=== PATIENT | female | born 1965 | race Caucasian/White ===

== ENCOUNTER 2018-08-12 21:35 | Emergency (ER) | payer BC, SELFPAY ==
[2018-08-12] MEDS ORDERED: MEPERIDINE HCL 25 MG/0.5 ML ONE (22:47)
[2018-08-12] MEDS ORDERED: ONDANSETRON 4 MG/2 ML VIAL ONE (22:47)
[2018-08-12] MEDS ORDERED: NA CHLORIDE 0.9% 1,000 ML ONE ×2 (22:48→23:48)
[2018-08-12 23:04] LABS: Absolute Lymphocytes (CBC) 0.7 K/uL (0.7-4.9); Absolute Monocytes 0.4 K/uL (0.1-1.3); Absolute Neutrophil 6.9 K/uL (1.8-8.0); Basophils % 0.2 % (0-1.3); Eosinophils % 1.5 % (0-4.4); Hematocrit 45.6 % (36.0-45.0); Lymphocytes % 8.5 % (15.3-44.8); MPV 9.4 fL (7.6-11.3); Monocytes % 4.8 % (3.3-12.3); RBC Red Blood Cell Count 5.32 M/uL (3.86-4.86)
[2018-08-12 23:21] LABS: Albumin 4.1 g/dL (3.4-5.0); Bilirubin Direct 0.2 mg/dL (0-0.2); Bilirubin Total 0.9 mg/dL (0.2-1.0); Potassium 3.7 mmol/L (3.5-5.1); Protein, Total 7.7 g/dL (6.4-8.2)
--- NOTE | 2018-08-13 00:58 | EDPHYS ---
Physician Documentation [facility] Name: Sirena Spears Age: 53 yrs Sex: Female : 1965 Arrival Date: 08/12/2018 Time: 21:38 Bed 23 Private MD: ED Physician Yasir Iqbal HPI: 08/12 22:29 This 53 yrs old Female presents to ER via Ambulatory with complaints of Back pkl Pain, Abdominal Pain, Vomiting/Diarrhea. 22:29 The patient complains of pain in the right flank. The pain radiates to the right lower pkl quadrant. Onset: The symptoms/episode began/occurred yesterday. Associated signs and symptoms: Pertinent positives: diarrhea, vomiting. 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 LMP N/A - Hysterectomy aa1 Historical: - Allergies: 21:46 Morphine; aa1 - Home Meds: 21:46 aspirin 325 mg Oral tab 1 tab once daily [Active]; Cymbalta 60 mg oral cpDR 1 cap once aa1 daily [Active]; Levemir 100 unit/mL subcutaneous soln 20 unit daily [Active]; losartan 25 mg oral tab 1 tab once daily [Active]; omega-3 fatty acids 1,000 mg oral cap 2 cap twice a day [Active]; propranolol 10 mg Oral tab daily [Active]; Victoza 3-Long 0.6 mg/0.1 mL (18 mg/3 mL) subcutaneous pnij 1.8 mL once daily [Active]; cholecalciferol (vitamin D3) 5,000 unit oral tab daily [Active]; Crestor 10 mg oral tab 1 tab once daily [Active]; Zyrtec 10 mg Oral tab 1 tab once daily [Active]; - PMHx: 21:46 Diabetes - IDDM; High Cholesterol; Hypertension; Migraines; aa1 - PSHx: 21:46 Tonsillectomy; Partial Hysterectomy; Cholecystectomy; aa1 - Immunization history:: Flu vaccine is up to date. - Social history:: Smoking status: Patient/guardian denies using tobacco. - Ebola Screening: : No symptoms or risks identified at this time. ROS: 22:29 Eyes: Negative for injury, pain, redness, and discharge, ENT: Negative for injury, pkl pain, and discharge, Neck: Negative for injury, pain, and swelling, Cardiovascular: Negative for chest pain, palpitations, and edema, Respiratory: Negative for shortness of breath, cough, wheezing, and pleuritic chest pain. 22:29 Abdomen/GI: Positive for abdominal pain, nausea, vomiting, and diarrhea, of the right lower quadrant. 22:29 Back: Positive for flank pain, on the right. 22:29 : Negative for urinary symptoms. 22:29 MS/extremity: Negative for acute changes. 22:29 Skin: Negative for rash. 22:29 Neuro: Negative for altered mental status. Exam: 22:29 Head/Face: Normocephalic, atraumatic. Eyes: Pupils equal round and reactive to light, pkl extra-ocular motions intact. Lids and lashes normal. Conjunctiva and sclera are non-icteric and not injected. Cornea within normal limits. Periorbital areas with no swelling, redness, or edema. ENT: Nares patent. No nasal discharge, no septal abnormalities noted. Tympanic membranes are normal and external auditory canals are clear. Oropharynx with no redness, swelling, or masses, exudates, or evidence of obstruction, uvula midline. Mucous membranes moist. Neck: Trachea midline, no thyromegaly or masses palpated, and no cervical lymphadenopathy. Supple, full range of motion without nuchal rigidity, or vertebral point tenderness. No Meningismus. Chest/axilla: Normal chest wall appearance and motion. Nontender with no deformity. No lesions are appreciated. Cardiovascular: Regular rate and rhythm with a normal S1 and S2. No gallops, murmurs, or rubs. Normal PMI, no JVD. No pulse deficits. Respiratory: Lungs have equal breath sounds bilaterally, clear to auscultation and percussion. No rales, rhonchi or wheezes noted. No increased work of breathing, no retractions or nasal flaring. Abdomen/GI: Soft, non-tender, with normal bowel sounds. No distension or tympany. No guarding or rebound. No evidence of tenderness throughout. 22:29 Back: pain, that is moderate, of the right flank. 22:29 : Exam negative for acute changes. 22:29 Musculoskeletal/extremity: Exam is negative for acute changes. 22:29 Skin: Exam negative for rash. 22:29 Neuro: Orientation: is normal, Mentation: is normal, Cranial nerves: grossly normal, Motor: is normal. Vital Signs: 21:46 BP 139 / 96; Pulse 138; Resp 18; Temp 97.4; Pulse Ox 97% on R/A; Weight 86.18 kg; aa1 Height 5 ft. 6 in. (167.64 cm); Pain 9/10; 23:40 BP 114 / 75; Pulse 109; Resp 20; Pulse Ox 95% on R/A; Pain 6/10; ao 08/13 01:20 BP 110 / 84; Pulse 112; Resp 18; Pulse Ox 94% on R/A; Pain 3/10; ao 01:39 Pulse 93; ao 08/12 21:46 Body Mass Index 30.67 (86.18 kg, 167.64 cm) aa1 MDM: 08/12 22:13 Patient medically screened. pkl 08/13 00:57 Data reviewed: vital signs, nurses notes, lab test result(s), radiologic studies, CT pkl scan. 08/12 22:27 Order name: Basic Metabolic Panel; Complete Time: 23:21 pkl 08/12 22:27 Order name: CBC with Diff; Complete Time: 23:21 pkl 08/12 22:27 Order name: Creatinine for Radiology; Complete Time: 23:21 pkl 08/12 22:27 Order name: Hepatic Function; Complete Time: 23:21 pkl 08/12 22:27 Order name: Lipase; Complete Time: 23:21 pkl 08/12 23:22 Order name: CT Abd/Pelvis - W/Contrast pkl 08/12 22:27 Order name: IV Saline Lock; Complete Time: 22:55 pkl 08/12 22:27 Order name: Labs collected and sent; Complete Time: 22:53 pkl Administered Medications: 08/12 22:54 Drug: Demerol 50 mg Route: IVP; Site: right antecubital; ao 08/13 01:33 Follow up: Response: No adverse reaction ao 08/12 22:54 Drug: Zofran 4 mg Route: IVP; Site: right antecubital; ao 08/13 01:32 Follow up: Response: No adverse reaction ao 08/12 22:55 Drug: NS 0.9% 1000 ml Route: IV; Rate: 1000 ml; Site: right antecubital; ao 08/13 00:20 Follow up: IV Status: Completed infusion; IV Intake: 1000ml ao 08/12 23:37 Drug: NS 0.9% 1000 ml Route: IV; Rate: 125 ml/hr; Site: right antecubital; ao 08/13 01:33 Follow up: IV Status: Completed infusion; IV Intake: 250ml ao 01:27 Drug: Lopressor 5 mg Route: IVP; Site: right antecubital; ao 01:35 Follow up: Response: No adverse reaction ao Disposition: 08/13/18 00:58 Discharged to Home. Impression: Abdominal pain. . - Condition is Stable. - Prescriptions for Ultram 50 mg Oral Tablet - take 1 tablet by ORAL route every 8 hours As needed; 20 tablet. - Medication Reconciliation Form, Thank You Letter, Antibiotic Education, Prescription Opioid Use form. - Follow up: Private Physician; When: 2 - 3 days; Reason: Re-evaluation by your physician. - Problem is new. - Symptoms have improved. Signatures: Dispatcher [employer] EDTori Elam RN RN aa1 Yasir Iqbal MD MD pkl Moreno Lin RN RN ao Corrections: (The following items were deleted from the chart) 01:41 00:58 08/13/2018 00:58 Discharged to Home. Impression: Abdominal pain. . Condition is ao Stable. Forms are Medication Reconciliation Form, Thank You Letter, Antibiotic Education, Prescription Opioid Use. Follow up: Private Physician; When: 2 - 3 days; Reason: Re-evaluation by your physician. Problem is new. Symptoms have improved. pkl
--- NOTE | 2018-08-13 00:58 | ER ---
Nurse's Notes [facility] Name: Sirena Spears Age: 53 yrs Sex: Female : 1965 Arrival Date: 08/12/2018 Time: 21:38 Bed 23 Private MD: Diagnosis: Abdominal pain. Presentation: 08/12 21:41 Presenting complaint: Patient states: R low back pain and nausea since yesterday. aa1 Reports the pain radiates around to RLQ. Transition of care: patient was not received from another setting of care. Onset of symptoms was August 11, 2018. Risk Assessment: Do you want to hurt yourself or someone else? Patient reports no desire to harm self or others. Initial Sepsis Screen: Does the patient meet any 2 criteria? HR > 90 bpm. No. Patient's initial sepsis screen is negative. Does the patient have a suspected source of infection? No. Patient's initial sepsis screen is negative. Care prior to arrival: None. 21:41 Method Of Arrival: Ambulatory aa1 21:41 Acuity: ELIJAH 3 aa1 Triage Assessment: 21:46 General: Appears in no apparent distress. comfortable, Behavior is calm, cooperative, aa1 appropriate for age. 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 LMP N/A - Hysterectomy aa1 Historical: - Allergies: 21:46 Morphine; aa1 - Home Meds: 21:46 aspirin 325 mg Oral tab 1 tab once daily [Active]; Cymbalta 60 mg oral cpDR 1 cap once aa1 daily [Active]; Levemir 100 unit/mL subcutaneous soln 20 unit daily [Active]; losartan 25 mg oral tab 1 tab once daily [Active]; omega-3 fatty acids 1,000 mg oral cap 2 cap twice a day [Active]; propranolol 10 mg Oral tab daily [Active]; Victoza 3-Long 0.6 mg/0.1 mL (18 mg/3 mL) subcutaneous pnij 1.8 mL once daily [Active]; cholecalciferol (vitamin D3) 5,000 unit oral tab daily [Active]; Crestor 10 mg oral tab 1 tab once daily [Active]; Zyrtec 10 mg Oral tab 1 tab once daily [Active]; - PMHx: 21:46 Diabetes - IDDM; High Cholesterol; Hypertension; Migraines; aa1 - PSHx: 21:46 Tonsillectomy; Partial Hysterectomy; Cholecystectomy; aa1 - Immunization history:: Flu vaccine is up to date. - Social history:: Smoking status: Patient/guardian denies using tobacco. - Ebola Screening: : No symptoms or risks identified at this time. Screenin:22 Abuse screen: Denies threats or abuse. Denies injuries from another. Nutritional ao screening: No deficits noted. Tuberculosis screening: No symptoms or risk factors identified. Fall Risk. Assessment: 22:20 General: Appears in no apparent distress. comfortable, Behavior is calm, cooperative, ao appropriate for age. Pain: Complains of pain in back and abdomen Pain currently is 8 out of 10 on a pain scale. Neuro: Level of Consciousness is awake, alert, obeys commands, Oriented to person, place, time, situation, Appropriate for age Moves all extremities. Full function Speech is normal, Facial symmetry appears normal. Cardiovascular: Capillary refill < 3 seconds Patient's skin is warm and dry. Respiratory: Airway is patent Respiratory effort is even, unlabored, Respiratory pattern is regular. GI: No signs and/or symptoms were reported involving the gastrointestinal system. : No signs and/or symptoms were reported regarding the genitourinary system. EENT: No signs and/or symptoms were reported regarding the EENT system. Derm: No signs and/or symptoms reported regarding the dermatologic system. Musculoskeletal: Circulation, motion, and sensation intact. Range of motion: intact in all extremities, Reports pain in back. 23:39 Reassessment: Patient appears in no apparent distress at this time. Patient and/or ao family updated on plan of care and expected duration. Pain level reassessed. Patient is alert, oriented x 3, equal unlabored respirations, skin warm/dry/pink. Waiting on CT scan. 08/13 01:24 Reassessment: Patient appears in no apparent distress at this time. Patient HR is 112. ao Dr Iqbal was notified and wants to do Lopressor 5 MG IVP and recheck HR before discharging patient. 01:39 Reassessment: Patient appears in no apparent distress at this time. DC home. HR 92 at ao this time. Patient states she fell much better and pain has drop to 3. Vital Signs: 08/12 21:46 BP 139 / 96; Pulse 138; Resp 18; Temp 97.4; Pulse Ox 97% on R/A; Weight 86.18 kg; aa1 Height 5 ft. 6 in. (167.64 cm); Pain 9/10; 23:40 BP 114 / 75; Pulse 109; Resp 20; Pulse Ox 95% on R/A; Pain 6/10; ao 08/13 01:20 BP 110 / 84; Pulse 112; Resp 18; Pulse Ox 94% on R/A; Pain 3/10; ao 01:39 Pulse 93; ao 08/12 21:46 Body Mass Index 30.67 (86.18 kg, 167.64 cm) aa1 ED Course: 08/12 21:38 Patient arrived in ED. mr 21:42 Triage completed. aa1 21:46 Arm band placed on left wrist. aa1 22:13 Yasir Iqbal MD is Attending Physician. pkl 22:19 Moreno Lin, MARK is Primary Nurse. ao 22:23 Patient has correct armband on for positive identification. Pulse ox on. NIBP on. ao 22:55 Inserted saline lock: 20 gauge in right antecubital area, using aseptic technique. ao Blood collected. 23:[address] via wheelchair. 08/13 00:29 CT Abd/Pelvis - W/Contrast In Process Unspecified. EDMS 01:40 No provider procedures requiring assistance completed. IV discontinued, intact, ao bleeding controlled, No redness/swelling at site. Pressure dressing applied. Administered Medications: 08/12 22:54 Drug: Demerol 50 mg Route: IVP; Site: right antecubital; ao 08/13 01:33 Follow up: Response: No adverse reaction ao 08/12 22:54 Drug: Zofran 4 mg Route: IVP; Site: right antecubital; ao 08/13 01:32 Follow up: Response: No adverse reaction ao 08/12 22:55 Drug: NS 0.9% 1000 ml Route: IV; Rate: 1000 ml; Site: right antecubital; ao 08/13 00:20 Follow up: IV Status: Completed infusion; IV Intake: 1000ml ao 08/12 23:37 Drug: NS 0.9% 1000 ml Route: IV; Rate: 125 ml/hr; Site: right antecubital; ao 08/13 01:33 Follow up: IV Status: Completed infusion; IV Intake: 250ml ao 01:27 Drug: Lopressor 5 mg Route: IVP; Site: right antecubital; ao 01:35 Follow up: Response: No adverse reaction ao Intake: 00:20 IV: 1000ml; Total: 1000ml. ao 01:33 IV: 250ml; Total: 1250ml. ao Outcome: 00:58 Discharge ordered by . jessa 01:41 Discharged to home ambulatory. ao 01:41 Condition: stable 01:41 Discharge instructions given to patient, Instructed on discharge instructions, follow up and referral plans. Demonstrated understanding of instructions, follow-up care, medications, Prescriptions given X 1. 01:41 Patient left the ED. ao Signatures: Dispatcher [employer] EDMS Tori Colindres RN RN aa1 Yasir Iqbal MD MD pkl Rivera, Mary mr Hagler, Ervin eh Ortiz, Alex, RN RN ao
[2018-08-13] MEDS ORDERED: METOPROLOL TARTRATE 5 MG/5 ML INJ IV ONE (01:34)
[2018-08-13 02:17] VITALS: TEMP 97.4
[2018-08-13 02:18] VITALS: BP 110/84; O2SAT 94
--- NOTE | 2018-08-13 10:36 | RAD REPORT ---
EXAM DESCRIPTION: CT - Abdomen Pelvis W Contrast - 08/13/2018 2:21 am COMPARISON: CT abdomen pelvis September 23, 2012 Indication: Abdominal pain, right low back pain TECHNIQUE: Multiple helical axial images were obtained through the abdomen and pelvis using intraven ous contrast. Coronal and sagittal reformatted images were obtained. All CT scans at this facility use dose modulation, iterative reconstruction, and/or weight-based dosi ng when appropriate to reduce radiation dose to as low as reasonably achievable. FINDINGS: Lung bases: Mild dependent atelectasis is noted. Liver: Low-attenuation is present suggestive of fatty changes. Liver appears large. Gallbladder/biliary: Gallbladder is surgically absent. There is mild prominence of the proximal commo n bile duct which is nonspecific in the setting of prior cholecystectomy Pancreas: Unremarkable. No evidence of ductal enlargement. Spleen: Small calcified granuloma noted. No splenomegaly. Adrenals: Unremarkable. Kidneys and ureters: No evidence of hydronephrosis. Normal enhancement. Bladder: Unremarkable. Pelvic organs: Post hysterectomy changes are present. A 4.4 cm cystic structure in the left adnexal r egion has decreased in size. Bowel: No evidence of bowel obstruction. No bowel wall thickening. Appendix appears unremarkable. Vasculature: Mild aortoiliac atherosclerosis demonstrated. Peritoneum: No free air. No significant free fluid. Lymph nodes: Unremarkable. Soft tissues: Unremarkable. Bones: Unremarkable. IMPRESSION: 1. No evidence for an acute process within the abdomen or pelvis. 2. Few incidental findings as above. Electronically signed by: Per Rodriguez MD 08/13/2018 12:37 AM CDT Due to temporary technical issues with the PACS/Fluency reporting system, reports are being signed by the in house radiologist as a courtesy to ensure prompt reporting. The interpreting radiologist is f ully responsible for the content of the report.
== END 2018-08-13 01:41 | disposition home or self-care (01) ==
LOC: ER 21:35
DX: R10.31 Right lower quadrant pain (principal); I10 Essential (primary) hypertension; E78.00 Pure hypercholesterolemia, unspecified; E11.9 Type 2 diabetes mellitus without complications; Z79.4 Long term (current) use of insulin; Z79.82 Long term (current) use of aspirin; Z88.5 Allergy status to narcotic agent
CPT/HCPCS: 36415; 74177; 80048; 80076; 83690; 85025; 96361; 96374; 96375; 99284; J2175; J2405; J7030; Q9967

== ENCOUNTER 2019-06-12 14:48 | Emergency (ER) | payer BC, OTHER ==
[2019-06-12] MEDS ORDERED: LEVALBUTEROL 1.25 MG/3 ML NEB ONE (15:50)
[2019-06-12] MEDS ORDERED: IPRATROPIUM BROM 0.5MG/2.5ML ONE (15:50)
--- NOTE | 2019-06-12 16:03 | RAD REPORT ---
EXAM DESCRIPTION: RAD - Chest Pa And Lat (2 Views) - 06/12/2019 3:41 pm CLINICAL HISTORY: COUGH COMPARISON: Chest Single View dated 05/15/2016 TECHNIQUE: Frontal and lateral views of the chest were obtained. FINDINGS: The lungs are clear. Interstitial pattern is similar to comparison. Heart size is normal and central vasculature is within normal limits. No pleural effusion or pneumothorax seen. No acute bony finding noted. No aortic abnormality. IMPRESSION: No acute cardiopulmonary process.
--- NOTE | 2019-06-12 16:20 | EDPHYS ---
Physician Documentation [facility] Name: Sirena Spears Age: 53 yrs Sex: Female : 1965 Arrival Date: 06/12/2019 Time: 14:56 Bed 18 Private MD: ED Physician Wayne Mazariegos HPI: 06/11 15:47 This 53 yrs old Female presents to ER via Ambulatory with complaints of kb Breathing Difficulty, Cough, Vomiting. 15:48 The patient or guardian reports cough, described as moderate, with no sputum. Onset: kb The symptoms/episode began/occurred 1 week(s) ago. Severity of symptoms: At their worst the symptoms were moderate, in the emergency department the symptoms are unchanged. Modifying factors: The symptoms are alleviated by nothing, the symptoms are aggravated by nothing. Associated signs and symptoms: Pertinent positives:. The patient has not experienced similar symptoms in the past. The patient has not recently seen a physician. Pt reports she started out with a sinus infection or URI last week and it has moved to her chest. Reports cough and low grade fever. . KAITARA TARAKA: 17:09 LMP N/A - iw Historical: - Allergies: 15:09 Morphine; ss - PMHx: 15:09 Diabetes - IDDM; High Cholesterol; Hypertension; Migraines; ss - PSHx: 15:09 Tonsillectomy; Partial Hysterectomy; Cholecystectomy; ss - Immunization history:: Adult Immunizations up to date. - Social history:: Smoking status: Patient denies any tobacco usage or history of. ROS: 15:47 Constitutional: Negative for fever, chills, and weight loss, ENT: Negative for injury, kb pain, and discharge, Neck: Negative for injury, pain, and swelling, Cardiovascular: Negative for chest pain, palpitations, and edema, Abdomen/GI: Negative for abdominal pain, nausea, vomiting, diarrhea, and constipation, Back: Negative for injury and pain, MS/Extremity: Negative for injury and deformity, Skin: Negative for injury, rash, and discoloration, Neuro: Negative for headache, weakness, numbness, tingling, and seizure. 15:47 Respiratory: Positive for cough, Negative for dyspnea on exertion, hemoptysis, orthopnea, pleurisy, shortness of breath, sputum production, wheezing. Exam: 15:47 Constitutional: This is a well developed, well nourished patient who is awake, alert, kb and in no acute distress. Head/Face: Normocephalic, atraumatic. ENT: Nares patent. No nasal discharge, no septal abnormalities noted. Tympanic membranes are normal and external auditory canals are clear. Oropharynx with no redness, swelling, or masses, exudates, or evidence of obstruction, uvula midline. Mucous membranes moist. Neck: Trachea midline, no thyromegaly or masses palpated, and no cervical lymphadenopathy. Supple, full range of motion without nuchal rigidity, or vertebral point tenderness. No Meningismus. Chest/axilla: Normal chest wall appearance and motion. Nontender with no deformity. No lesions are appreciated. Cardiovascular: Regular rate and rhythm with a normal S1 and S2. No gallops, murmurs, or rubs. Normal PMI, no JVD. No pulse deficits. Respiratory: Lungs have equal breath sounds bilaterally, clear to auscultation and percussion. No rales, rhonchi or wheezes noted. No increased work of breathing, no retractions or nasal flaring. Abdomen/GI: Soft, non-tender, with normal bowel sounds. No distension or tympany. No guarding or rebound. No evidence of tenderness throughout. Skin: Warm, dry with normal turgor. Normal color with no rashes, no lesions, and no evidence of cellulitis. MS/ Extremity: Pulses equal, no cyanosis. Neurovascular intact. Full, normal range of motion. Neuro: Awake and alert, GCS 15, oriented to person, place, time, and situation. Cranial nerves II-XII grossly intact. Motor strength 5/5 in all extremities. Sensory grossly intact. Cerebellar exam normal. Normal gait. Vital Signs: 15:07 BP 137 / 77; Pulse 116; Resp 18; Temp 98.9(O); Pulse Ox 96% on R/A; Weight 83.91 kg; ss Height 5 ft. 5 in. (165.10 cm); Pain 5/10; 17:09 BP 132 / 74; Pulse 105; Resp 20 S; Pulse Ox 97% on R/A; iw 15:07 Body Mass Index 30.79 (83.91 kg, 165.10 cm) ss MDM: 15:12 Patient medically screened. kb 15:46 Data reviewed: vital signs, nurses notes. Data interpreted: Pulse oximetry: on room air kb is 96 %. Interpretation: normal. 16:18 Counseling: I had a detailed discussion with the patient and/or guardian regarding: the kb historical points, exam findings, and any diagnostic results supporting the discharge/admit diagnosis, lab results, radiology results, the need for outpatient follow up, a family practitioner, to return to the emergency department if symptoms worsen or persist or if there are any questions or concerns that arise at home. 06/11 15:14 Order name: Flu; Complete Time: 16:06 kb 06/11 15:14 Order name: Chest Pa And Lat (2 Views) XRAY; Complete Time: 16:35 kb Administered Medications: 15:50 Drug: Xopenex 1.25 mg Route: Inhalation; em 16:30 Follow up: Response: No adverse reaction; Marked relief of symptoms em 15:50 Drug: AtroVENT Aerosol 0.5 mg Route: Inhalation; em 16:30 Follow up: Response: No adverse reaction; Marked relief of symptoms em Disposition: 17:17 Co-signature as Attending Physician, Wayne Mazariegos MD I agree with the assessment and kdr plan of care. Disposition: 06/12/19 16:19 Discharged to Home. Impression: Influenza due to identified novel influenza A virus. - Condition is Stable. - Discharge Instructions: Influenza, Adult, [id number], Viral Respiratory Infection, [id number]. - Prescriptions for Tessalon Perles 100 mg Oral Capsule - take 1 capsule by ORAL route every 8 hours As needed; 15 capsule. Albuterol Sulfate 90 mcg/actuation - inhale 1-2 puff by INHALATION route every 4-6 hours; 1 Inhaler. - Medication Reconciliation Form, Thank You Letter, Antibiotic Education, Prescription Opioid Use form. - Follow up: Emergency Department; When: As needed; Reason: Worsening of condition. Follow up: Private Physician; When: 2 - 3 days; Reason: Recheck today's complaints, Continuance of care, Re-evaluation by your physician. Signatures: Dispatcher [employer] Julienne Beckford, ELECTRIC REFRIGERATOR SERVICER-C ELECTRIC REFRIGERATOR SERVICER-Wayne Rodrigues MD MD [facility] Mikhail Gale RN RN em Kenna Newman RN RN Melly Phelps RN RN Corrections: (The following items were deleted from the chart) 17:10 16:19 06/12/2019 16:19 Discharged to Home. Impression: Influenza due to identified iw novel influenza A virus. Condition is Stable. Forms are Medication Reconciliation Form, Thank You Letter, Antibiotic Education, Prescription Opioid Use. Follow up: Emergency Department; When: As needed; Reason: Worsening of condition. Follow up: Private Physician; When: 2 - 3 days; Reason: Recheck today's complaints, Continuance of care, Re-evaluation by your physician. kb
--- NOTE | 2019-06-12 16:20 | ER ---
Nurse's Notes [facility] Name: Sirena Spears Age: 53 yrs Sex: Female : 1965 Arrival Date: 06/12/2019 Time: 14:56 Bed 18 Private MD: Diagnosis: Influenza due to identified novel influenza A virus Presentation: 06/11 15:07 Chief complaint: Patient states: cough x 1 week. Low grade fever at night time. ss Coronavirus screen: The patient has NOT traveled to a country currently being monitored by the CDC within the last 14 days. Coronavirus screen: The patient has NOT traveled to a country currently being monitored by the [facility] within the last 14 days. Proceed with normal triage procedures. Ebola Screen: Patient denies exposure to infectious person. Patient denies travel to an Ebola-affected area in the 21 days before illness onset. Initial Sepsis Screen: Does the patient meet any 2 criteria? No. Patient's initial sepsis screen is negative. Does the patient have a suspected source of infection? No. Patient's initial sepsis screen is negative. Risk Assessment: Do you want to hurt yourself or someone else? Patient reports no desire to harm self or others. 15:07 Method Of Arrival: Ambulatory ss 15:07 Acuity: ELIJAH 2 ss Triage Assessment: 17:10 Respiratory: the patient has mild shortness of breath. 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 - Social history:: Smoking status: Patient denies any tobacco usage or history of. Screenin:30 Abuse screen: Denies threats or abuse. Nutritional screening: No deficits noted. em Tuberculosis screening: No symptoms or risk factors identified. Fall Risk None identified. Assessment: 15:20 General: Appears in no apparent distress. comfortable, Behavior is calm, cooperative, em Reports low grade fever. Pain: Denies pain. Neuro: Level of Consciousness is awake, alert, obeys commands, Oriented to person, place, time, situation, Appropriate for age. Cardiovascular: Rhythm is sinus tachycardia. Respiratory: Reports shortness of breath cough that is productive, pain with movement Airway is patent Respiratory effort is even, unlabored, Respiratory pattern is regular, symmetrical, Breath sounds are clear bilaterally. GI: Patient currently denies nausea, vomiting. Derm: Skin is intact, is healthy with good turgor, Skin is pink, warm \T\ dry. Musculoskeletal: Capillary refill < 3 seconds, Range of motion: intact in all extremities. Vital Signs: 15:07 BP 137 / 77; Pulse 116; Resp 18; Temp 98.9(O); Pulse Ox 96% on R/A; Weight 83.91 kg; ss Height 5 ft. 5 in. (165.10 cm); Pain 5/10; 17:09 BP 132 / 74; Pulse 105; Resp 20 S; Pulse Ox 97% on R/A; iw 15:07 Body Mass Index 30.79 (83.91 kg, 165.10 cm) ss ED Course: 14:56 Patient arrived in ED. mr 15:09 Triage completed. ss 15:09 Arm band placed on right wrist. ss 15:10 Flu and/or RSV swab sent to lab. em 15:12 Julienne Maguire FNP-C is PHCP. kb 15:12 Wayne Mazariegos MD is Attending Physician. kb 15:20 Mikhail Gale, MARK is Primary Nurse. em 15:30 Patient has correct armband on for positive identification. Bed in low position. Call em light in reach. Pulse ox on. NIBP on. 15:44 Chest Pa And Lat (2 Views) XRAY In Process Unspecified. EDMS 17:09 No provider procedures requiring assistance completed. Patient did not have IV access iw during this emergency room visit. Administered Medications: 15:50 Drug: Xopenex 1.25 mg Route: Inhalation; em 16:30 Follow up: Response: No adverse reaction; Marked relief of symptoms em 15:50 Drug: AtroVENT Aerosol 0.5 mg Route: Inhalation; em 16:30 Follow up: Response: No adverse reaction; Marked relief of symptoms em Outcome: 16:19 Discharge ordered by . kb 17:09 Discharged to home ambulatory. iw 17:09 Condition: good 17:09 Discharge instructions given to patient, Instructed on discharge instructions, follow up and referral plans. medication usage, Demonstrated understanding of instructions, follow-up care, medications, Prescriptions given X 2. 17:10 Patient left the ED. iw Signatures: Dispatcher [employer] Julienne Beckford, FORD-C PLASTER LATHER-Constance Garcia Isabel Mikhail Overton, RN RN Kenna Gomez, RN RN Melly Sofia, MARK RN ss
[2019-06-12 17:46] VITALS: TEMP 98.9
[2019-06-12 17:47] VITALS: BP 132/74; O2SAT 97
== END 2019-06-12 17:10 | disposition home or self-care (01) ==
LOC: ER 14:48
DX: J10.1 Influenza due to other identified influenza virus with other respiratory manifestations (principal); I10 Essential (primary) hypertension; Z88.5 Allergy status to narcotic agent
CPT/HCPCS: 71046; 87804; 99285

== ENCOUNTER 2022-01-08 07:56 | Emergency (ER) | payer BC ==
[2022-01-08 08:59] LABS: Absolute Lymphocytes (CBC) 1.4 K/uL (0.7-4.9); Hematocrit 42.8 % (36.0-45.0); RBC Red Blood Cell Count 4.86 M/uL (3.86-4.86)
[2022-01-08] MEDS ORDERED: NA CHLORIDE 0.9% 1,000 ML ONE (08:59)
[2022-01-08] MEDS ORDERED: METOCLOPRAMIDE 10 MG/2mL INJ ONE (09:00)
[2022-01-08 09:13] LABS: Bilirubin Total 0.5 mg/dL (0.2-1.0); Potassium 3.9 mmol/L (3.5-5.1)
[2022-01-08] MEDS ORDERED: INSULIN -REGULAR HUMAN 50 UNIT/0.5 ML ML ONE (10:02)
--- NOTE | 2022-01-08 11:37 | ER ---
Nurse's Notes [facility] Name: Sirena Spears Age: 56 yrs Sex: Female : 1965 Arrival Date: 01/08/2022 Time: 07:58 Bed 8 Private MD: Salomon Curry C Diagnosis: Hyperglycemia, unspecified;Migraine without aura, not intractable Presentation: 01/08 08:11 Chief complaint: Patient states: Feeling weak all over, nauseous, diarrhea since jl7 yesterday morning, denies fever, BGL at home was 286. Coronavirus screen: Vaccine status: Patient reports receiving the 2nd dose of the covid vaccine. diarrhea, Client presents with at least one sign or symptom that may indicate coronavirus-19. Standard/surgical mask placed on the client. Ebola Screen: No symptoms or risks identified at this time. Initial Sepsis Screen: Does the patient meet any 2 criteria? No. Patient's initial sepsis screen is negative. Does the patient have a suspected source of infection? No. Patient's initial sepsis screen is negative. Risk Assessment: Do you want to hurt yourself or someone else? Patient reports no desire to harm self or others. Onset of symptoms was January 07, 2022. 08:11 Method Of Arrival: Ambulatory [facility] 08:11 Acuity: ELIJAH 3 jl 08:21 No acute neurological deficit is noted. The patients blood glucose was checked prior to [facility] arriving to the hospital and was found to be hyperglycemic. The patient has been moved to a treatment room. Triage Assessment: 08:21 The onset of the patients symptoms was January 07, 2022 at 08:00. General: Appears in jl7 no apparent distress. uncomfortable, ill, Behavior is calm, cooperative, appropriate for age. Pain: Complains of pain in ALEJANDRA Pain does not radiate. Pain currently is 5 out of 10 on a pain scale. Pain began 1 day ago. Neuro: Reports Weak all over. Cardiovascular: Patient's skin is warm and dry. Respiratory: Airway is patent Respiratory effort is even, unlabored, Respiratory pattern is regular, symmetrical. GI: Reports diarrhea, nausea, since yesterday morning. Derm: Skin is pink, warm \\T\\ dry. 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 jl7 Historical: - Allergies: 08:14 Morphine; jl7 - Home Meds: 08:14 aspirin 325 mg Oral tab 1 tab once daily [Active]; Cymbalta 60 mg Oral cpDR 1 cap once jl7 daily [Active]; Levemir 100 unit/mL subcutaneous soln 20 unit daily [Active]; losartan 25 mg Oral tab 1 tab once daily [Active]; propranolol 10 mg Oral tab daily [Active]; rosuvastatin 10 mg oral tab once daily [Active]; Victoza 3-Long 0.6 mg/0.1 mL (18 mg/3 mL) subcutaneous pnij 1.8 mL once daily [Active]; cholecalciferol (vitamin D3) 5,000 unit Oral tab daily [Active]; gemfibrozil 600 mg Oral tab 1 tab 2 times per day [Active]; Humalog Pen 100 unit/mL Sub-Q inpn [Active]; - PMHx: 08:14 Diabetes - IDDM; High Cholesterol; Hypertension; Migraines; jl7 - Immunization history:: Client reports receiving the 2nd dose of the Covid vaccine. - Social history:: Smoking status: Patient denies any tobacco usage or history of. Screenin:15 Abuse screen: Denies threats or abuse. mb9 08:15 Nutritional screening: No deficits noted. Tuberculosis screening: No symptoms or risk mb9 factors identified. Fall Risk None identified. Assessment: 08:21 Reassessment: While sitting in triage pt states "I just feel really weak all over, jl7 jabari like I'm gonna pass out." After about 5 minutes sitting in triage pt's body appeared to go flacid for approximately 1-2 seconds then improved. Pt moved to ER room 8 at this time. 08:21 General: Appears uncomfortable, Behavior is calm, cooperative, appropriate for age. mb9 08:21 Pain: Complains of pain in head and back of head Pain currently is 6 out of 10 on a mb9 pain scale. Quality of pain is described as throbbing, Pain began suddenly. Neuro: Level of Consciousness is awake, alert, obeys commands, Oriented to person, place, time, situation, Appropriate for age Household Appliances Service Technician are equal bilaterally Moves all extremities. Gait is steady, Speech is normal. Cardiovascular: Heart tones S1 S2 present Bruits absent Rhythm is regular. Respiratory: Breath sounds are clear bilaterally. GI: Abdomen is flat, Stools are reported to be diarrhea. Bowel sounds present X 4 quads. hyperactive in right upper quadrant, left upper quadrant, right lower quadrant and left lower quadrant Abd is soft Abdomen is tender to palpation in right lower quadrant and left lower quadrant Reports lower abdominal pain, diarrhea. : No signs and/or symptoms were reported regarding the genitourinary system. EENT: No signs and/or symptoms were reported regarding the EENT system. Derm: Skin is pink, warm \\T\\ dry. Musculoskeletal: Range of motion: intact in all extremities. 09:00 The patient tolerated 90mL of water. No drooling, immediate coughing, gurgling, or mb9 clearing of the throat was noted. 09:30 General: Appears comfortable, Behavior is calm, cooperative, appropriate for age. Pain: mb9 Complains of pain in back of head and head Pain currently is 6 out of 10 on a pain scale. Neuro: Level of Consciousness is awake, alert, obeys commands, Oriented to person, place, time, situation, Appropriate for age Household Appliances Service Technician are equal bilaterally Moves all extremities. Cardiovascular: Heart tones S1 S2 present. Respiratory: Breath sounds are clear. GI: Abdomen is flat, Stools are reported to be diarrhea. Bowel sounds present X 4 quads. Abd is soft Abdomen is tender to palpation. : No signs and/or symptoms were reported regarding the genitourinary system. Derm: Skin is pink, warm \\T\\ dry. Derm: Skin is pink, warm \\T\\ dry. 10:42 Pain: Denies pain. Neuro: Level of Consciousness is awake, alert, obeys commands, mb9 Oriented to person, place, time, situation, Appropriate for age Speech is normal. Respiratory: Breath sounds are clear bilaterally. GI: Abdomen is flat, Bowel sounds present X 4 quads. Abd is soft and non tender X 4 quads. Patient currently denies abdominal pain. Derm: Skin is pink, warm \\T\\ dry. 12:05 General: Appears comfortable. Pain: Denies pain. Neuro: Level of Consciousness is mb9 awake, alert, obeys commands, Oriented to person, place, time, situation, Appropriate for age. Neuro: Denies headache. Cardiovascular: Heart tones S1 S2 present Rhythm is regular. GI: Abdomen is flat, Patient currently denies abdominal pain. Derm: Skin is pink, warm \\T\\ dry. Vital Signs: 08:11 BP 148 / 91; Pulse 87; Resp 17; Temp 97.9; Pulse Ox 99% ; Weight 85.73 kg; Height 5 ft. jl7 5 in. (165.10 cm); Pain 5/10; 08:20 BP 147 / 81; Pulse 84; Resp 18; Pulse Ox 99% on R/A; Pain 6/10; mb9 09:30 BP 134 / 80; Pulse 93; Resp 16; Pulse Ox 98% on R/A; Pain 4/10; mb9 10:38 BP 135 / 71; Pulse 98; Resp 16; Pulse Ox 100% on R/A; Pain 2/10; mb9 12:05 BP 130 / 86; Pulse 94; Resp 16; Pulse Ox 100% on R/A; Pain 0/10; mb9 08:11 Body Mass Index 31.45 (85.73 kg, 165.10 cm) 7 ED Course: 07:58 Patient arrived in ED. as 07:58 Salomon Curry MD is Private Physician. as 08:12 [facility] 08:12 Wayne Mazariegos MD is Attending Physician. [facility] 08:14 Triage completed. jl7 08:20 Attending Physician role handed off by Wayne Mazariegos MD naila 08:20 Santi Chau MD is Attending Physician. [facility] 08:20 Arm band placed on right wrist. jl7 08:20 Placed in gown. Bed in low position. Call light in reach. Side rails up X 1. mb9 08:26 Isabel Chamberlain RN is Primary Nurse. mb9 08:46 Inserted saline lock: 20 gauge in right wrist, using aseptic technique. Blood collected.mb9 08:56 CBC with Diff Sent. mb9 08:56 CMP Sent. mb9 08:56 Lipase Sent. mb9 09:00 No provider procedures requiring assistance completed. mb9 09:00 IV discontinued, intact, bleeding controlled, No redness/swelling at site. Pressure mb9 dressing applied. 11:36 Salomon Curry MD is Referral Physician. [facility] Administered Medications: 09:05 Drug: NS 0.9% 1000 ml Route: IV; Rate: 1 bolus; Site: right wrist; mb9 10:00 Follow up: IV Status: Completed infusion mb9 09:05 Drug: Reglan (metoCLOPramide) 10 mg Route: IVP; Site: right wrist; mb9 09:58 Follow up: Response: No adverse reaction mb9 11:31 Follow up: Response: No adverse reaction mb9 10:10 Drug: Insulin Regular Human 5 units {Co-Signature: aa5 (Rosa Ozuna RN).} Route: mb9 IVP; Site: right wrist; 11:30 Follow up: Response: No adverse reaction mb9 Medication: 08:15 VIS not applicable for this client. mb9 Point of Care Testing: Blood Glucose: 08:20 Blood Glucose: 282 mg/dL; jl7 Ranges: Outcome: 11:37 Discharge ordered by . esteban 12:16 Discharged to home ambulatory. mb9 12:16 Condition: stable 12:16 Discharge instructions given to patient, Instructed on discharge instructions, follow up and referral plans. medication usage, Demonstrated understanding of instructions, follow-up care, medications, Prescriptions given X 1. 12:17 Patient left the ED. mb9 Signatures: Santi Chau MD MD cha Mickail, Joel, PA PA jmm Martinez, Amelia as Leal, Jahala, RN RN jl7 Isabel Chamberlain RN RN mb9 Rosa Ozuna RN aa5 Corrections: (The following items were deleted from the chart) 10:35 10:31 General: Appears mb9 mb9
--- NOTE | 2022-01-08 11:37 | EDPHYS ---
Physician Documentation [facility] Name: Sirena Spears Age: 56 yrs Sex: Female : 1965 Arrival Date: 01/08/2022 Time: 07:58 Bed 8 Private MD: Salomon Curry C ED Physician Santi Chau HPI: 01/08 08:20 This 56 yrs old Female presents to ER via Ambulatory with complaints of High Blood jmm Sugar, Weakness. 08:20 Onset: The symptoms/episode began/occurred gradually, 1 week(s) ago. Associated signs jmm and symptoms: Pertinent positives: nausea. This is a 56-year-old female with history of diabetes mellitus, hyperlipidemia, hypertension, migraines who presents emerged part with complaints of ongoing nausea, fatigue, some lower abdominal pain along with diarrhea. Patient denies fever. Denies vomiting. Patient states she has had difficulty at home controlling her blood glucose level. 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 LMP N/A - Post-menopause jl7 Historical: - Allergies: 08:14 Morphine; jl7 - Home Meds: 08:14 aspirin 325 mg Oral tab 1 tab once daily [Active]; Cymbalta 60 mg Oral cpDR 1 cap once jl7 daily [Active]; Levemir 100 unit/mL subcutaneous soln 20 unit daily [Active]; losartan 25 mg Oral tab 1 tab once daily [Active]; propranolol 10 mg Oral tab daily [Active]; rosuvastatin 10 mg oral tab once daily [Active]; Victoza 3-Long 0.6 mg/0.1 mL (18 mg/3 mL) subcutaneous pnij 1.8 mL once daily [Active]; cholecalciferol (vitamin D3) 5,000 unit Oral tab daily [Active]; gemfibrozil 600 mg Oral tab 1 tab 2 times per day [Active]; Humalog Pen 100 unit/mL Sub-Q inpn [Active]; - PMHx: 08:14 Diabetes - IDDM; High Cholesterol; Hypertension; Migraines; jl7 - Immunization history:: Client reports receiving the 2nd dose of the Covid vaccine. - Social history:: Smoking status: Patient denies any tobacco usage or history of. ROS: 08:20 Constitutional: Positive for body aches. jmm 08:20 Respiratory: Negative for cough, shortness of breath. 08:20 Abdomen/GI: Positive for abdominal pain, nausea, diarrhea. 08:20 All other systems are negative. Exam: 08:20 Constitutional: This is a well developed, well nourished patient who is awake, alert, jmm and in no acute distress. Head/Face: atraumatic. Eyes: EOMI, no conjunctival erythema appreciated ENT: Moist Mucus Membranes Neck: Trachea midline, Supple Chest/axilla: Normal chest wall appearance and motion. Cardiovascular: Regular rate and rhythm. No edema appreciated Respiratory: Normal respirations, no respiratory distress appreciated 08:20 Back: Normal ROM Skin: General appearance color normal MS/ Extremity: Moves all extremities, no obvious deformities appreciated, no edema noted to the lower extremities Neuro: Awake and alert Psych: Behavior is normal, Mood is normal, Patient is cooperative and pleasant 08:20 Abdomen/GI: Inspection: abdomen appears normal, Bowel sounds: normal, Palpation: abdomen is soft and non-tender, in all quadrants. Vital Signs: 08:11 BP 148 / 91; Pulse 87; Resp 17; Temp 97.9; Pulse Ox 99% ; Weight 85.73 kg; Height 5 ft. jl7 5 in. (165.10 cm); Pain 5/10; 08:20 BP 147 / 81; Pulse 84; Resp 18; Pulse Ox 99% on R/A; Pain 6/10; mb9 09:30 BP 134 / 80; Pulse 93; Resp 16; Pulse Ox 98% on R/A; Pain 4/10; mb9 10:38 BP 135 / 71; Pulse 98; Resp 16; Pulse Ox 100% on R/A; Pain 2/10; mb9 12:05 BP 130 / 86; Pulse 94; Resp 16; Pulse Ox 100% on R/A; Pain 0/10; mb9 08:11 Body Mass Index 31.45 (85.73 kg, 165.10 cm) jl7 MDM: 08:20 Patient medically screened. [facility] 11:36 Data reviewed: vital signs, nurses notes. Counseling: I had a detailed discussion with esteban the patient and/or guardian regarding: the historical points, exam findings, and any diagnostic results supporting the discharge/admit diagnosis, lab results, the need for outpatient follow up, to return to the emergency department if symptoms worsen or persist or if there are any questions or concerns that arise at home. ED course: Patient is alert nontoxic in appearance in the ED. Headache is relieved. Patient states feeling much better. Patient advised follow-up PCP for management of hyperglycemia and otherwise given strict return precautions. Patient understood and agrees plan of care.. 01/08 08:21 Order name: Glucose, Ancillary Testing; Complete Time: 08:23 EDMS 01/08 08:32 Order name: CBC with Diff [facility] 01/08 08:32 Order name: CMP [facility] 01/08 08:32 Order name: Lipase [facility] 01/08 09:00 Order name: CBC with Automated Diff; Complete Time: 09:11 EDMS 01/08 09:13 Order name: Comprehensive Metabolic Panel; Complete Time: 09:45 EDMS 01/08 09:13 Order name: Lipase; Complete Time: 09:45 EDMS 01/08 09:48 Order name: Influenza Screen (A ; Complete Time: 09:55 EDMS 01/08 10:21 Order name: SARS-COV-2 RT PCR; Complete Time: 10:27 EDMS 01/08 08:32 Order name: IV Saline Lock; Complete Time: 08:56 [facility] 01/08 08:32 Order name: Labs collected and sent; Complete Time: 08:56 [facility] Administered Medications: 09:05 Drug: NS 0.9% 1000 ml Route: IV; Rate: 1 bolus; Site: right wrist; mb9 10:00 Follow up: IV Status: Completed infusion mb9 09:05 Drug: Reglan (metoCLOPramide) 10 mg Route: IVP; Site: right wrist; mb9 09:58 Follow up: Response: No adverse reaction mb9 11:31 Follow up: Response: No adverse reaction mb9 10:10 Drug: Insulin Regular Human 5 units {Co-Signature: aa5 (Rosa Ozuna RN).} Route: mb9 IVP; Site: right wrist; 11:30 Follow up: Response: No adverse reaction mb9 Point of Care Testing: Blood Glucose: 08:20 Blood Glucose: 282 mg/dL; jl7 Ranges: Critical Glucose Levels:Adult <50 mg/dl or >400 mg/dl <40 mg/dl or >180 mg/dl Disposition Summary: 01/08/22 11:37 Discharge Ordered Location: Home jmm Condition: Stable jmm Diagnosis - Hyperglycemia, unspecified jmm - Migraine without aura, not intractable jmm Followup: jmm - With: Salomon Curry MD - When: 2 - 3 days - Reason: Recheck today's complaints, Continuance of care, Re-evaluation by your physician Discharge Instructions: - Discharge Summary Sheet jmm - Migraine Headache jmm - Hyperglycemia jm Forms: - Medication Reconciliation Form [facility] - Thank You Letter esteban - Antibiotic Education hussainm - Prescription Opioid Use jm Prescriptions: - ondansetron 4 mg Oral tablet,disintegrating - take 1 tablet by ORAL route every 4-6 hours As needed; 20 tablet; Refills: 0, jmaditi Product Selection Permitted Signatures: Dispatcher [employer] EDMS Santi Chau MD MD cha Mickail, Joel, PA PA jmm Leal, Jahala RN RN jl7 Isabel Chamberlain RN RN mb9 Rosa Ozuna RN aa5 Corrections: (The following items were deleted from the chart) 08:57 08:46 SARS-COV-2 RT PCR+MOL.LAB.BRZ ordered. EDMS EDMS 08:57 08:46 Influenza Screen (A \T\ B)+BA.LAB.BRZ ordered. EDMS EDMS
[2022-01-08 12:40] VITALS: TEMP 97.9
[2022-01-08 12:44] VITALS: O2SAT 100
[2022-01-08 12:46] VITALS: BP 130/86
== END 2022-01-08 12:17 | disposition home or self-care (01) ==
LOC: ER 07:56
DX: E11.65 Type 2 diabetes mellitus with hyperglycemia (principal); G43.909 Migraine, unspecified, not intractable, without status migrainosus; I10 Essential (primary) hypertension; E78.00 Pure hypercholesterolemia, unspecified; Z79.4 Long term (current) use of insulin; Z79.82 Long term (current) use of aspirin; Z79.899 Other long term (current) drug therapy
CPT/HCPCS: 96361; 85025; 36415; 82947; 83690; 80053; 87804 ×2; 96375; 96374; 99284; U0003; J2765; J1815; J7030